=== PATIENT | female | born 1945 | race Caucasian/White ===

== ENCOUNTER → 2017-04-07 | Outpatient (CLI) | payer OTHER | LOC: YCFC.O 08:33 | PROVIDERS: ATTEND Nurse Practitioner Family | DX: Z00.00 Encounter for general adult medical examination without abnormal findings (principal); I10 Essential (primary) hypertension; R73.09 Other abnormal glucose; M85.80 Other specified disorders of bone density and structure, unspecified site; R53.83 Other fatigue; Z13.1 Encounter for screening for diabetes mellitus; Z13.220 Encounter for screening for lipoid disorders; Z13.89 Encounter for screening for other disorder ==

== ENCOUNTER → 2017-06-05 | Outpatient (CLI) | payer OTHER ==
--- NOTE | 2017-06-06 16:09 | RAD ---
EXAM DESCRIPTION: Hip,Left 2 Views CLINICAL HISTORY: PAIN IN LEFT HIP COMPARISON: None Available. 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 No fracture or dislocation is seen. Moderately degenerative left SI joint is incidentally noted. IMPRESSION: Advanced degenerative changes left hip with [id number] appearance. Electronically signed by: Ankush Alanis MD 06/06/2017 4:08 PM CDT
== END ==
LOC: YCFC.O 15:54
PROVIDERS: ATTEND Nurse Practitioner Family
DX: M25.552 Pain in left hip (principal); R30.0 Dysuria

== ENCOUNTER → 2017-10-16 | Outpatient (CLI) | payer OTHER ==
--- NOTE | 2017-10-16 16:38 | RAD ---
EXAM DESCRIPTION: Chest,2 Views CLINICAL HISTORY: COUGH COMPARISON: December 03, 2015 TECHNIQUE: PA/lateral FINDINGS: There is no cardiac or pulmonary abnormality. The lungs are clear. There is no effusion. IMPRESSION: 1. Normal two-view chest. Electronically signed by: Deven Kiran MD 10/16/2017 4:37 PM [employer] [employer]
== END ==
LOC: YCFC.O 16:13
PROVIDERS: ATTEND Nurse Practitioner Family
DX: R05 Cough (principal)